=== PATIENT | female | born 1995 ===

== ENCOUNTER 2019-12-11 16:56 | Emergency (ER) | payer BC ==
[2019-12-11 18:33] VITALS: BP 102/68
--- NOTE | 2019-12-11 18:50 | UC ---
Respiratory Complaint HPI - HPI Summary HPI Summary: 24 yo with 2 week history of respiratory symptoms, beginning with a fever and flu like illness. since then, she has had off and on symptoms of nasal congestion and ear pain, worse in the past 2 days, with increased fatigue. Regular use of decongestants topically is not helping. - History of Current Complaint Chief Complaint: UCGeneralIllness Stated Complaint: RESP COMPLAINT Time Seen by Provider: 12/11/19 18:48 Hx Obtained From: Patient Hx Last Menstrual Period: today ?: No Onset/Duration: Gradual Onset, Lasting Weeks Pain Intensity: 4 Character: Cough: Nonproductive Aggravating Factors: Recumbent Position Alleviating Factors: OTC Meds Associated Signs And Symptoms: Positive: URI, Nasal Congestion, Sinus Discomfort - Risk Factors Pulmonary Embolism Risk Factors: Negative Cardiac Risk Factors: Negative Pseudomonas Risk Factors: Negative Tuberculosis Risk Factors: Negative - Allergies/Home Medications Allergies/Adverse Reactions: Allergies Allergy/AdvReac Type Severity Reaction Status Date / Time No Known Allergies Allergy Verified 12/11/19 18:34 Home Medications: Home Medications Amoxicillin PO (*) [Amoxicillin 875 MG (*)] 875 mg PO BID #20 tab 12/11/19 [Rx] PMH/Surg Hx/FS Hx/Imm Hx Previously Healthy: Yes - Family History Known Family History: Positive: Other - breast cancer - Social History Occupation: Employed Full-time Lives: Dormitory/Roommates Alcohol Use: None Substance Use Type: None Smoking Status (MU): Never Smoked Tobacco Review of Systems All Other Systems Reviewed And Are Negative: Yes Constitutional: Positive: Fatigue Skin: Positive: Negative Eyes: Positive: Negative ENT: Positive: Sore Throat, Ear Ache, Nasal Discharge, Sinus Congestion, Sinus Pain/Tenderness Respiratory: Positive: Negative Cardiovascular: Positive: Negative Gastrointestinal: Positive: Negative Genitourinary: Positive: Negative, Other - has IUD in place Motor: Positive: Negative Neurovascular: Positive: Negative Musculoskeletal: Positive: Negative Neurological/Mental Status: Negative: Headache Psychological: Positive: Negative Is Patient Immunocompromised?: No Physical Exam Triage Information Reviewed: Yes Appearance: Ill-Appearing - looks mildly unwell Vital Signs: Initial Vital Signs Temp 97.9 F 12/11/19 18:29 Pulse 63 12/11/19 18:29 Resp 16 12/11/19 18:29 BP 102/68 12/11/19 18:29 Pulse Ox 100 02/26/20 18:29 Vital Signs Reviewed: Yes Eyes: Positive: Conjunctiva Clear ENT: Positive: Pharyngeal erythema, Nasal congestion, Nasal drainage, Sinus tenderness Dental Exam: Normal Neck: Positive: Supple, Nontender, No Lymphadenopathy Respiratory: Positive: Lungs clear, Normal breath sounds Cardiovascular: Positive: RRR, No Murmur Musculoskeletal Exam: Normal Neurological Exam: Normal Psychological Exam: Normal Skin Exam: Normal Respiratory Course/Dx - Course Course Of Treatment: amoxicillin for treatment of sinusitis discussed symptoms relief as per discharge instruction. - Differential Dx/Diagnosis Differential Diagnosis/HQI/PQRI: Influenza, Laryngitis, Lower Resp Infection, Sinusitis Provider Diagnosis: Sinusitis Discharge ED - Sign-Out/Discharge Documenting (check all that apply): Patient Departure All imaging exams completed and their final reports reviewed: No Studies - Discharge Plan Condition: Stable Disposition: HOME Prescriptions: Amoxicillin PO (*) [Amoxicillin 875 MG (*)] 875 mg PO BID #20 tab Patient Education Materials: Sinusitis (ED) Referrals: No Primary Care Phys,NOPCP [Primary Care Provider] - Additional Instructions: Begin amoxicillin for treatment of sinusitis. For additional control of sympotms: ~ you can use saline nose spray ([place] spry) to promote drainage. ~ addition of pseudoephedrine 30mg every 6 hours can be helpful (ask the pharmacist for this as it is behind the counter). ~ nasal steroids such as Fluticasone (Flonase) over the counter can also promote sinus drainage. - Billing Disposition and Condition Condition: STABLE Disposition: Home
== END 2019-12-11 19:21 | disposition home or self-care (01) ==
LOC: UCEAST 16:56
DX: J32.9 Chronic sinusitis, unspecified (principal); J02.9 Acute pharyngitis, unspecified; H92.09 Otalgia, unspecified ear
CPT/HCPCS: 99212; G0463